=== PATIENT | male | born 1940 | race Caucasian/White ===

== ENCOUNTER → 2018-11-16 | Outpatient (CLI) | payer OTHER ==
[~2018-11-16] VITALS: Ht 182.9 cm; Wt 93.0 kg
[~2018-11-16] MED LIST: ASPIR 8181 MG PO; ASPIRIN81 M2 PO; CARISOPRODOL 3350 MG PO; CO Q-10100 MG PO; CRESTOR10 MG PO; HYDROXYCHLOROQ200 M1 PO; KRILL OIL500 MG PO; LUTEIN-ZEAXANT1 EAC1 PO; MOBIC15 MG PO; MULTIVITAMINS1 EAC7 PO; OASIS TEARS PLUS; OMEGA-3 2100 S1 EACH PO; OMEPRAZOLE40 MG PO; SYNTHROID137 MC1 PO; VITAMIN D2000 UNIT PO; XIIDRA1 EACH OPHTHALMIC; [UNRECOGNIZED DRUG - CODE] PO
[2018-11-16 14:48] VITALS: BP 113/82
--- NOTE | 2018-11-16 15:36 | NUR ---
Pain Clinic Assessment: 1. History of Osteoarthritis: History of Rheumatoid Arthritis: NO 2. Height: 6 ft. 0 in. 182.9 cm. Weight: 205.0 lb. oz. 92.988 kg. Patient's BMI: 27.8 3. Vital Signs: BP: 113/82 Pulse: 64 Resp: 16 Temp: 02 Sat: 98 ECG Mon: 4. Pain Intensity: 2 5. Fall Risk: Dizziness: N Needs help standing or walking: N Fallen in the last 3 months: N Fall risk comments: 6. Patient on Blood Thinner: None 7. History of Hypertension: N 8. Opioid Therapy greater than 6 weeks: N Opiate Contract Signed: 9. Risk Assessment Tool Provided: 10. Functional Assessment Tool: 11. Recreational Drug Use: Unknown Drug Type: Tobacco Use: Unknown if Ever Smoked Tobacco Type: Amount or Packs/day: How Many Years: Alcohol Use: No Frequency: Quant:
--- NOTE | 2018-11-30 08:39 | HPC ---
[facility] [place] [address] PAIN MANAGEMENT CONSULTATION Name: SANDRITA HUBBARD Room #: REG RONALD Anna.#: [id number] Admission: 11/16/18 ������������������ Attend Phys: Yovany Méndez MD Discharge: ������������������ Date of : 42 Report #: [id number] THIS REPORT FOR: //name// CC: Farhad Méndez DATE OF SERVICE: 11/16/2018 CHIEF COMPLAINT: Numbness from waist down into the feet on both legs, intermittent. HISTORY OF PRESENT ILLNESS: The patient is a pleasant 78-year-old. He has intermittent and periodic numbness, which involves both legs. It comes generally at night when he is supine. When he is awake and begins moving again, the numbness tends to go away completely. He denies significant weakness with this. He denies significant pain. He has had previous treatment for lumbar radiculopathy. He has had an MRI performed recently. The MRI does show at the L3-L4 level, there is disk bulging with posterior facet degenerative changes. Although, there is no impingement seen on the central canal, the disk extends laterally quite a bit into the foramina causing bilateral foraminal stenosis. At L4-L5, there is mild posterior facet change with minimal bulging. No impingement seen on the overall canal. The disk extends at that level as well and to the foramina bilaterally. At L5-S1, there is only mild foraminal tapering. MEDICATIONS: Rosuvastatin, Synthroid, Xiidra, multivitamins, D3, B3, fish oil, shingles injection. ALLERGIES: None. PAST MEDICAL HISTORY: Positive for hypothyroidism. PAST SURGICAL HISTORY: Include undescended testicle surgery in 1946, hernia repair in 1970, colon resection in 1990, thyroidectomy 2008, hernia repair in 2012, cataract surgery, right and left in 2016. SOCIAL HISTORY: Denies tobacco or alcohol. He is and retired. REVIEW OF SYSTEMS: Positive for some blurred vision, nocturia and numbness in his lower extremities. PHYSICAL EXAMINATION: GENERAL: This is a very pleasant, outgoing gentleman. He is alert and oriented with no signs of anxiety or depression. [facility] [address] [place] [address] PAIN MANAGEMENT CONSULTATION Name: SANDRITA HUBBARD Room #: REG [facility] [id number] Admission: 11/16/18 ������������������ Attend Phys: Yovany Méndez MD Discharge: ������������������ Date of : 42 Report #: [id number] VITAL SIGNS: His blood pressure is 113/82, heart rate 64, respirations 16. He is 6 feet tall, 205 pounds. BMI is 27.8. CHEST: Clear. CARDIAC: Rhythm is regular. EXTREMITIES: He moves easily from sitting to standing position, ambulates without difficulty. Examination of the lower extremities reveals normal sensation today. No focal weakness. No complaints of pain with straight leg raising. Minimal pain across the lumbosacral segment. IMPRESSION: Intermittent numbness affecting both lower extremities. PLAN: I am not sure what this is, but the MRI would suggest that perhaps he has some numbness related to foraminal stenosis. It is intermittent. It does not seem to affect his day-to-day function. He was reassured and discharged from our clinic without treatment. If his pain worsens or changes in symptomatology, I would like to reevaluate him. For the time being, I think the only offer that I could provide for him from an interventional standpoint would be an epidural steroid injection and see if it has improved these possible radicular symptoms. He was rescheduled to follow up if pain worsens. ��������������������������������������������� <ELECTRONICALLY SIGNED> ���������������������������������������� By: Yovany Méndez MD ��������������������������������������������� 11/30/18 [id number] Yovany Méndez MD /nt
== END ==
LOC: PAIN 07:07
DX: R20.0 Anesthesia of skin (principal); M79.604 Pain in right leg; M79.605 Pain in left leg